=== PATIENT | female | born 1985 | race Caucasian/White ===

== ENCOUNTER 2017-01-13 19:34 | Inpatient (IN) | payer OTHER ==
[2017-01-13 21:56] LABS: HEMOGLOBIN 10.4 g/dL (11.0-16.0); MEAN CELL VOLUME 82.5 fL (81.0-99.0); MEAN CORPUSCULAR HEMOGLOBIN 26.1 pg (27.0-31.0); MEAN CORPUSCULAR HGB CONC 31.6 g/dL (33.0-37.0); MEAN PLATELET VOLUME 10.4 fL (7.2-11.7); RBC 3.98 Mil/uL (3.80-5.20); RED CELL DISTRIBUTION WIDTH 17.5 % (11.5-14.5); WHITE BLOOD COUNT 13.3 K/uL (4.8-10.8)
[2017-01-13 22:01] LABS: ALBUMIN 4.1 g/dL (3.5-5.0)
[2017-01-13 22:02] LABS: HCG,QUALITATIVE URINE NEGATIVE (NEGATIVE)
[2017-01-13 22:04] LABS: AST/SGOT 33 U/L (14-36); GFR AFRICAN-AMERICAN > 60; GFR NON-AFRICAN AMERICAN > 60
[2017-01-13 22:05] LABS: ALB/GLOB RATIO 0.7 (1.0-2.1); ALT/SGPT 23 U/L (9-52); BLOOD UREA NITROGEN 9 mg/dL (7-17); CALCIUM 9.5 mg/dl (8.6-10.4); LIPASE 107 U/L (23-300)
[2017-01-13 22:10] LABS: INR 1.4; PROTHROMBIN TIME 15.3 SECONDS (9.7-12.2)
[2017-01-13 22:21] LABS: SQUAMOUS EPITHIAL 3 /hpf (0-5); URINE BACTERIA FEW (<OCC); URINE BILIRUBIN 1+ (NEGATIVE); URINE BLOOD 1+ (NEGATIVE); URINE CALCIUM OXALATE CRYSTALS MOD /hpf (<OCC); URINE CLARITY Hazy (Clear); URINE COLOR Amber (YELLOW); URINE GLUCOSE (UA) NORMAL (Normal); URINE LEUKOCYTE ESTERASE TRACE Leu/uL (Negative); URINE NITRATE NEGATIVE (NEGATIVE); URINE PROTEIN 1+ mg/dL (NEGATIVE); URINE UROBILINOGEN NORMAL mg/dL (0.2-1.0)
[2017-01-14 01:58] VITALS: BMI 16.2
--- NOTE | 2017-01-14 01:58 | CP.PCM.HP ---
History of Present Illness - History of Present Illness History of Present Illness: General surgery H & P for Dr. Torri Khan, PGY-1 Pt S & E at bedside. 31F w/no sig PMH admitted to surgical service for N/V x 2 days 2/2 high grade bowel obstruction. Pt reports abdominal cramping and emesis (nb, bilious, food and juices) 3-4x per day x past 2 days. Cramping described as twisting, pt reports feeling a hard mass in left side of abdomen when cramping occurs, no inciting, alleviating or aggravating factors identified. Pt went to PMD, given Dicycloamine, took 2 doses, 2nd dose resulted in emesis this AM- pt declined to take more doses. Admits to decreased appetite, recent wt loss over last 2-3 mos, cough/cold 2-3 mos ago, last BM on AM of admission, small volume, reports some small amounts of diarrhea over past 2 days. Denies changes in diet, F/C, SOB, CP, MEYERS, vision changes, hematuria, hematochezia, hematemesis, melena. PMH: Denies PSH: Denies All: Denies SH: Denies ETOH, tobacco, illicit drug use FH: Mother had TB, was being treated for it during time that patient lived with her; recently moved to [place] from [place] (10 mos ago) PMD: Jelani Sainz LMP: 01/10/17- irregular Present on Admission - Present on Admission Any Indicators Present on Admission: No History of DVT/PE: No History of Uncontrolled Diabetes: No Urinary Catheter: No Decubitus Ulcer Present: No Review of Systems - Review of Systems All systems: reviewed and no additional remarkable complaints except - Constitutional Constitutional: Night Sweats (recent history of), Weight Loss (recent history of ). absent: Chills, Fever - EENT Eyes: absent: Change in Vision Nose/Mouth/Throat: absent: Nasal Congestion, Sore Throat - Cardiovascular Cardiovascular: absent: Chest Pain, Palpitations - Respiratory Respiratory: absent: Cough - Gastrointestinal Gastrointestinal: Abdominal Pain, Change in Bowel Habits, Cramping, Vomiting. absent: Nausea - Genitourinary Genitourinary: absent: Change in Urinary Stream - Musculoskeletal Musculoskeletal: absent: Back Pain Meds Allergies/Adverse Reactions: Allergies Allergy/AdvReac Type Severity Reaction Status Date / Time No Known Allergies Allergy Unverified 01/14/17 01:56 Physical Exam - Constitutional Appears: Non-toxic, No Acute Distress - Head Exam Head Exam: ATRAUMATIC, NORMAL INSPECTION, NORMOCEPHALIC - Eye Exam Eye Exam: EOMI, Normal appearance - ENT Exam ENT Exam: Mucous Membranes Moist, Normal Exam - Neck Exam Neck exam: Positive for: Full Rom, Normal Inspection - Respiratory Exam Respiratory Exam: Clear to Auscultation Bilateral, NORMAL BREATHING PATTERN. absent: Rales, Rhonchi, Wheezes, Respiratory Distress - Cardiovascular Exam Cardiovascular Exam: REGULAR RHYTHM, +S1, +S2 - GI/Abdominal Exam GI & Abdominal Exam: Firm, Hypoactive Bowel Sounds, Tenderness (LLQ, suprapubic) . absent: Distended, Guarding, Hernia, Mass, Rebound, Rigid - Back Exam Back exam: FULL ROM, NORMAL INSPECTION - Neurological Exam Neurological exam: Alert, CN II-XII Intact, Oriented x3 - Psychiatric Exam Psychiatric exam: Normal Affect, Normal Mood - Skin Skin Exam: Dry, Intact, Normal Color, Warm Results - Labs Result Diagrams: 01/13/17 21:49 01/13/17 21:49 Labs: Laboratory Results - last 24 hr 01/13/17 01/13/17 01/13/17 21:49 21:49 21:49 WBC 13.3 H RBC 3.98 Hgb 10.4 L Hct 32.8 L MCV 82.5 MCH 26.1 L MCHC 31.6 L RDW 17.5 H Plt Count 287 MPV 10.4 PT 15.3 H INR 1.4 APTT 30 Sodium 132 Potassium 3.9 Chloride 91 L Carbon Dioxide 21 L Anion Gap 24 H BUN 9 Creatinine 0.5 L Est GFR ( Amer) > 60 Est GFR (Non-Af Amer) > 60 Random Glucose 105 Calcium 9.5 Total Bilirubin 0.9 AST 33 ALT 23 Alkaline Phosphatase 103 Total Protein 9.8 H Albumin 4.1 Globulin 5.7 H Albumin/Globulin Ratio 0.7 L Lipase 107 Urine Color Urine Clarity Urine pH Ur Specific [place] Urine Protein Urine Glucose (UA) Urine Ketones Urine Blood Urine Nitrate Urine Bilirubin Urine Urobilinogen Ur Leukocyte Esterase Urine WBC (Auto) Urine RBC (Auto) Ur Squamous Epith Cells Calcium Oxalate Crystal Urine Bacteria Hyaline Casts Urine HCG, Qual Blood Type Antibody Screen 01/13/17 01/13/17 21:49 22:01 WBC RBC Hgb Hct MCV MCH MCHC RDW Plt Count MPV PT INR APTT Sodium Potassium Chloride Carbon Dioxide Anion Gap BUN Creatinine Est GFR ( Amer) Est GFR (Non-Af Amer) Random Glucose Calcium Total Bilirubin AST ALT Alkaline Phosphatase Total Protein Albumin Globulin Albumin/Globulin Ratio Lipase Urine Color [place] Urine Clarity Hazy Urine pH 5.0 Ur Specific [place] 1.030 Urine Protein 1+ H Urine Glucose (UA) Normal Urine Ketones 2+ H Urine Blood 1+ H Urine Nitrate Negative Urine Bilirubin 1+ H Urine Urobilinogen Normal Ur Leukocyte Esterase Trace Urine WBC (Auto) 10 H Urine RBC (Auto) 8 H Ur Squamous Epith Cells 3 Calcium Oxalate Crystal Mod H Urine Bacteria Few H Hyaline Casts 3-5 H Urine HCG, Qual Negative Blood Type B POSITIVE Antibody Screen Negative Assessment & Plan - Assessment and Plan (Free Text) Plan: SBO Admit to surgical service NGT NPO IVF Pain regimen CT ab w/o PO or IV cont with airfluid levels, distended bowel loops FU Obstructive series in AM GI/DVT ppx SCDs Pepcid Ambulate Dispo VS Q8H Activity as tommie/OOBTC/ambulate DW attending Erin PGY-1 - Date & Time Date: 01/14/17 Time: 01:58 Decision To Admit - . Bed Request Type: Regular Admitting Physician: Clay Elizalde
[2017-01-14] MEDS: Sodium Chloride 0.9% 1,000 ML IV SCH ×4 (02:00→22:24)
--- NOTE | 2017-01-14 09:34 | CT ---
PROCEDURE: CT Abdomen and Pelvis without intravenous contrast HISTORY: R/O KIDNEY STONE LEFT SIDE COMPARISON: None. TECHNIQUE: CT scan of the abdomen and pelvis was performed without administration of intravenous contrast. Oral contrast was not administered. Coronal and sagittal reformatted images were obtained. Radiation dose: Total exam DLP = 198.42 mGy-cm. This CT exam was performed using one or more of the following dose reduction techniques: Automated exposure control, adjustment of the mA and/or kV according to patient size, and/or use of iterative reconstruction technique. FINDINGS: LOWER THORAX: The lung bases are clear. LIVER: The liver is normal in size. No gross lesion or ductal dilatation. GALLBLADDER AND BILE DUCTS: No calcified gallstones. PANCREAS: The pancreas is normal in size. No gross lesion or ductal dilatation. SPLEEN: The spleen is normal in size and appearance. ADRENALS: Unremarkable. No mass. KIDNEYS AND URETERS: Normal in size without nephrolithiasis. No hydronephrosis. No solid mass. VASCULATURE: No aortic aneurysm. BOWEL: There is moderate dilatation of small bowel loops with air-fluid levels and fecalization of contents in the distal small bowel. The terminal ileum is normal in caliber. The ileocecal junction is normal. The colon is unremarkable. APPENDIX: Normal appendix. PERITONEUM: There is mild perihepatic ascites and small amount of free fluid in the pelvis. No free air. LYMPH NODES: No enlarged lymph nodes. BLADDER: The urinary bladder is partially decompressed. REPRODUCTIVE: The uterus is normal in size. BONES: No acute fracture. Within normal limits for the patient's age OTHER FINDINGS: None. IMPRESSION: Findings are consistent with high grade acute small bowel obstruction with a transition zone likely in the distal ileum. No evidence of nephrolithiasis or obstructive uropathy. A preliminary report was provided by [employer].
--- NOTE | 2017-01-14 11:36 | RAD ---
PROCEDURE: Radiographs of the chest and abdomen (obstructive series) HISTORY: possible SBO COMPARISON: CT abdomen and pelvis from 01/13/2017 TECHNIQUE: AP radiograph of the chest, with upright and supine radiographs of the abdomen. FINDINGS: CHEST: Lungs: Clear. Cardiovascular: Normal size heart. No pulmonary vascular congestion. Pleura: No pleural fluid. No pneumothorax. Other findings: None. ABDOMEN AND PELVIS: Bowel: There is redemonstration of gaseous distention of the proximal small bowel loops. The distal small bowel loops are decompressed. Free air: None. Bones: Unremarkable. Other findings: None. IMPRESSION: Persistent gaseous distention of proximal small bowel loops consistent with known acute small bowel obstruction. Clear lungs.
[2017-01-15 00:34] VITALS: RESP 20
[2017-01-15] MEDS: Sodium Chloride 0.9% 1,000 ML IV SCH (05:36)
[2017-01-15 07:17] LABS: BASO % 0.2 % (0.0-2.0); EOS % 0.3 % (0.0-4.0); HEMOGLOBIN 9.4 g/dL (11.0-16.0); LYMPH # 1.9 K/uL (1.0-4.3); LYMPH % 13.5 % (20.0-40.0); MEAN CELL VOLUME 84.4 fL (81.0-99.0); MEAN CORPUSCULAR HEMOGLOBIN 25.9 pg (27.0-31.0); MEAN CORPUSCULAR HGB CONC 30.7 g/dL (33.0-37.0); MEAN PLATELET VOLUME 10.8 fL (7.2-11.7); MONO # 1.1 K/uL (0.0-0.8); NEUT # 10.9 K/uL (1.8-7.0); NRBC % 0.1 % (0.0-2.0); RBC 3.64 Mil/uL (3.80-5.20); WHITE BLOOD COUNT 13.9 K/uL (4.8-10.8)
[2017-01-15 07:32] LABS: GFR AFRICAN-AMERICAN > 60; GFR NON-AFRICAN AMERICAN > 60
[2017-01-15 07:33] LABS: BLOOD UREA NITROGEN 5 mg/dL (7-17); CALCIUM 7.9 mg/dl (8.6-10.4)
--- NOTE | 2017-01-15 07:50 | CP.PCM.PN ---
Subjective - Date & Time of Evaluation Date of Evaluation: 01/15/17 Time of Evaluation: 07:00 - Subjective Subjective: Patient seen and examined at bedside this AM. Patient had a fever of 103 overnight that has since resolved. Patient denies further nausea and vomiting, and reports a small solid, non-bloody bowel movement overnight. An NGT insertion was attempted yesterday but patient couldn't tolerate the procedure and refused further attempts. Objective - Vital Signs/Intake and Output Vital Signs (last 24 hours): Temp Pulse Resp BP Pulse Ox 97.9 F 87 20 79/40 L 97 01/14/17 23:07 01/14/17 23:07 01/14/17 23:07 01/14/17 23:07 01/14/17 23:07 Intake and Output: 01/15/17 01/15/17 06:59 18:59 Intake Total 860 Balance 860 - Medications Medications: Current Medications Acetaminophen (Tylenol 325mg Tab) 650 mg PO Q6 PRN PRN Reason: Pain, Mild (1-3) Last Admin: 01/14/17 22:21 Dose: 650 mg Famotidine (Pepcid) 20 mg IVP DAILY DYLAN Sodium Chloride (Sodium Chloride 0.9%) 1,000 mls @ 150 mls/hr IV .Q6H40M DYLAN Last Admin: 01/15/17 05:36 Dose: 150 mls/hr Ketorolac Tromethamine (Toradol) 30 mg IV Q6 PRN PRN Reason: Pain, moderate (4-7) Last Admin: 01/14/17 21:27 Dose: 30 mg Ondansetron HCl (Zofran Inj) 4 mg IVP Q6 PRN PRN Reason: Nausea/Vomiting - Labs Labs: 01/15/17 07:01 01/15/17 07:01 PT 15.3 SECONDS (9.7-12.2) H 01/13/17 21:49 INR 1.4 01/13/17 21:49 APTT 30 SECONDS (21-34) 01/13/17 21:49 - Constitutional Appears: Well, Non-toxic, No Acute Distress - Head Exam Head Exam: ATRAUMATIC, NORMOCEPHALIC - Eye Exam Eye Exam: Normal appearance. absent: Conjunctival injection, Scleral icterus - ENT Exam ENT Exam: Mucous Membranes Moist - Respiratory Exam Respiratory Exam: NORMAL BREATHING PATTERN. absent: Accessory Muscle Use, Wheezes - Cardiovascular Exam Cardiovascular Exam: RRR - GI/Abdominal Exam GI & Abdominal Exam: Distended (moderately), Soft. absent: Rigid, Tenderness - Extremities Exam Extremities Exam: absent: Calf Tenderness, Pedal Edema, Tenderness - Neurological Exam Neurological Exam: Alert, Awake, Oriented x3 - Psychiatric Exam Psychiatric exam: Normal Affect, Normal Mood - Skin Skin Exam: Dry, Intact, Normal Color, Warm Assessment and Plan - Assessment and Plan (Free Text) Assessment: 31F with SBO Fever 103 over night, currently afebrile Abdominal obstructive series yesterday: Proximal small bowel distention with gas with distal decompression WBC: up to 13.9 from 13.3 yesterday NGT insertion attempt not tolerated yesterday Plan: - NPO - IVF - Pain regimen - GI/DVT ppx - encouraged ambulation Dispo: continue inpatient admission on med/surg VS Q8H Activity as tommie/OOBTC/ambulate Further recs per Dr. Fide Arias, PGY2
[2017-01-15] MEDS ORDERED: metroNIDAZOLE IV 500 mg/100 ml 500 MG/100 ML BAG IVPB SCH (08:00)
[2017-01-15] MEDS: Lactated Ringer's 1,000 ML IV SCH ×2 (08:35→16:49)
[2017-01-15] MEDS ORDERED: Ciprofloxacin 400mg/200ml D5W 400 MG/200 ML BAG IVPB SCH (09:00)
--- NOTE | 2017-01-15 12:16 | CP.PCM.PN ---
Subjective - Date & Time of Evaluation Date of Evaluation: 01/15/17 Time of Evaluation: 12:13 - Subjective Subjective: claims to have had a small amount of bm and flatus. requests liquids po. will oblige but if symptoms of obstruction recurs, will consider laparotomy or laparoscopy Objective - Vital Signs/Intake and Output Vital Signs (last 24 hours): Temp Pulse Resp BP Pulse Ox 98.3 F 93 H 20 93/60 L 100 01/15/17 07:48 01/15/17 07:48 01/15/17 07:48 01/15/17 07:48 01/15/17 07:48 Intake and Output: 01/15/17 01/15/17 06:59 18:59 Intake Total 860 Balance 860 - Medications Medications: Current Medications Acetaminophen (Tylenol 325mg Tab) 650 mg PO Q6 PRN PRN Reason: Pain, Mild (1-3) Last Admin: 01/14/17 22:21 Dose: 650 mg Famotidine (Pepcid) 20 mg IVP DAILY [facility] Last Admin: 01/15/17 11:00 Dose: 20 mg Lactated Ringer's (Lactated Ringer's) 1,000 mls @ 125 mls/hr IV .Q8H [facility] Last Admin: 01/15/17 08:35 Dose: 125 mls/hr Ciprofloxacin (Cipro 400mg/200ml Dsw) 400 mg in 200 mls @ 133 mls/hr IVPB Q12 DYLAN Metronidazole (Flagyl) 500 mg in 100 mls @ 100 mls/hr IVPB Q8H [facility] Last Admin: 01/15/17 10:40 Dose: 100 mls/hr Ketorolac Tromethamine (Toradol) 30 mg IV Q6 PRN PRN Reason: Pain, moderate (4-7) Last Admin: 01/14/17 21:27 Dose: 30 mg Ondansetron HCl (Zofran Inj) 4 mg IVP Q6 PRN PRN Reason: Nausea/Vomiting - Labs Labs: 01/15/17 07:01 01/15/17 07:01 PT 15.3 SECONDS (9.7-12.2) H 01/13/17 21:49 INR 1.4 01/13/17 21:49 APTT 30 SECONDS (21-34) 01/13/17 21:49
--- NOTE | 2017-01-15 14:55 | RAD ---
HISTORY: SBO comparison COMPARISON: 01/14/2017. FINDINGS: BOWEL: There is interval increase in size of gas-filled dilated proximal small bowel loops in the left abdomen. Again noted are differential air-fluid levels. No free intraperitoneal air. BONES: Normal. OTHER FINDINGS: None. IMPRESSION: Interval increase in size of gas-filled dilated small bowel loops in the left abdomen in this known small bowel obstruction. No free intraperitoneal air.
[2017-01-15] MEDS: Piperacill/Tazo 3.375gm in Dex 3.375 GM/50 ML BAG IVPB SCH ×2 (15:28→22:24)
--- NOTE | 2017-01-15 15:36 | CP.PCM.CON ---
History of Present Illness - History of Present Illness History of Present Illness: Patient is a 31yr old female who was admitted with severe abdominal pain, vomiting and nausea for 2 days prior to the admission.She says she had severe abdominal pain which she thought was due to constipation but later it became unbearable Patient is presently NPO and being treated for bowel obstruction.She still complains of pain in left lower quadrant.Patient is here since last May 2016 comes from [place] pt reports feeling a hard mass in left side of abdomen when cramping occurs, no inciting, alleviating or aggravating factors identified. Pt went to PMD, given Dicycloamine, took 2 doses, 2nd dose resulted in emesis this AM- pt declined to take more doses. Admits to decreased appetite, recent wt loss over last 2-3 mos, cough/cold 2-3 mos ago, last BM on AM of admission, small volume, reports some small amounts of diarrhea over past 2 days. Denies changes in diet, F/C, SOB, CP, MEYERS, vision changes, hematuria, hematochezia, hematemesis, melena. PMH: Denies PSH: Denies All: Denies SH: Denies ETOH, tobacco, illicit drug use FH: Mother had TB, was being treated for it during time that patient lived with her; recently moved to [place] from [place] (10 mos ago) PMD: Jelani Sainz LMP: 01/10/17- irregular Review of Systems - Review of Systems All systems: reviewed and no additional remarkable complaints except - Constitutional Constitutional: Weakness - EENT Eyes: absent: As Per HPI, Blind Spots, Blurred Vision, Change in Vision, Decreased Night Vision, Diplopia, Discharge, Dry Eye, Exophthalmos, Floaters, Irritation, Itchy Eyes, Loss of Peripheral Vision, Pain, Photophobia, Requires Corrective Lenses, Sees Flashes, Spots in Vision, Tunnel Vision, Other Visual Disturbances, Loss of Vision, Other Nose/Mouth/Throat: absent: As Per HPI, Epistaxis, Nasal Congestion, Nasal Discharge, Nasal Obstruction, Nasal Trauma, Nose Pain, Post Nasal Drip, Sinus Pain, Sinus Pressure, Bleeding Gums, Change in Voice, Dental Pain, Dry Mouth, Dysphagia, Halitosis, Hoarsness, Lip Swelling, Mouth Lesions, Mouth Pain, Odynophagia, Sore Throat, Throat Swelling, Tongue Swelling, Facial Pain, Neck Pain, Neck Mass, Other - Cardiovascular Cardiovascular: absent: As Per HPI, Acrocyanosis, Chest Pain, Chest Pain at Rest , Chest Pain with Activity, Claudication, Diaphoresis, Dyspnea, Dyspnea on Exertion, Edema, Irregular Heart Rhythm, Pain Radiating to Arm/Neck/Jaw, Leg Edema, Leg Ulcers, Lightheadedness, Orthopnea, Palpitations, Paroxysmal Nocturnal Dyspnea, Pedal Edema, Radiating Pain, Rapid Heart Rate, Slow Heart Rate, Syncope, Other - Respiratory Respiratory: absent: As Per HPI, Cough, Dyspnea, Hemoptysis, Dyspnea on Exertion , Wheezing, Snoring, Stridor, Pain on Inspiration, Chest Congestion, Excessive Mucous Production, Change in Mucous Color, Pain with Coughing, Other - Gastrointestinal Gastrointestinal: Abdominal Pain, Constipation, Cramping, Nausea. absent: As Per HPI, Belching, Bloating, Change in Bowel Habits, Change in Stool Character, Coffee Ground Emesis, Diarrhea, Dyspepsia, Dysphagia, Early Satiety, Excessive Flatus, Fecal Incontinence, Heartburn, Hematemesis, Hematochezia, Loose Stools, Melena, Odynophagia, Temesmus, Vomiting, Other - Genitourinary Genitourinary: absent: As Per HPI, Change in Urinary Stream, Difficulty Urinating, Dysuria, Flank Pain, Hematuria, Pyuria, Nocturia, Urinary Incontinence, Urinary Frequency, Urinary Hesitance, Urinary Urgency, Voiding Freq/Small Amts, Freq UTI, Hx Renal/Bladder Calculi, Hx /Renal Surgery, Bladder Distension, Other - Reproductive: Female Reproductive:Female: absent: As Per HPI, Amenorrhea, Amenorrhea/ Control, Currently Menstual, Cycle <21 Days, Cycle >35 Days, Cycle Variable, Menses 1-7 Days, Menses >/= 8 Days, Menses Variable, Cycle > 4 Weeks Between, No Menses for 6 Months, Heavy Menses, Light Menses, Normal Menses, Spotting Between Cycles , S/P Hysterectomy, Menopausal, Post Menopausal, Premenarche, Abnormal Vaginal Bleeding, Dysmenorrhea, Dyspareunia, Genital Lesions, Genital Pruritis, Pelvic Pain, Prolapse Symptoms, Sexual Dysfunction, Vaginal Discharge, Vaginal Dryness , Vaginal Odor, Vaginal Pruritis, Other Additional comments: irregular periods last in November2016 - Musculoskeletal Musculoskeletal: absent: As Per HPI, Abnormal Gait, Arthralgias, Atrophy, Back Pain, Deformity, Joint Swelling, Limited Range of Motion, Loss of Height, Muscle Cramps, Muscle Weakness, Myalgias, Neck Pain, Numbness, Radiating Pain into Limb, Stiffness, Tingling, Other - Integumentary Integumentary: absent: As Per HPI, Acne, Alopecia, Bleeding Lesions, Change in Hair, Change in Nails, Change in Pigmentation, Changing Lesions, Dry Skin, Erythema, Furuncle, Hirsutism, Lesions, New Lesions, Non-Healing Lesions, Photosensitivity, Pruritus, Rash, Skin Pain, Skin Ulcer, Sores, Striae, Swelling , Unusual Bruising, Wounds, Jaundice, Other - Neurological Neurological: absent: As Per HPI, Abnormal Gait, Abnormal Hearing, Abnormal Movements, Abnormal Speech, Behavioral Changes, Burning Sensations, Confusion, Convulsions, Disequilibrium, Dizziness, Numbness, Focal Weakness, Frequent Falls , Headaches, Lack of Coordination, Loss of Vision, Memory Loss, Paresthesias, Radicular Pain, Restless Legs, Sensory Deficit, Syncope, Tingling, Tremor, Vertigo, Weakness, Other Visual Disturbances, Other - Psychiatric Psychiatric: absent: As Per HPI, Abnormal Sleep Pattern, Anhedonia, Anxiety, Auditory Hallucinations, Behavioral Changes, Change in Appetite, Change in Libido, Confusion, Depression, Difficulty Concentrating, Hallucinations, Homicidal Ideation, Hopelessness, Irritability, Memory Loss, Mood Swings, Panic Attacks, Paranoia, Suicidal Ideation, Visual Hallucinations, Tactile Hallucinations, Other - Endocrine Endocrine: absent: As Per HPI, Change in Body Appearance, Change in Libido, Cold Intolorance, Deepening of Voice, Excessive Sweating, Fatigue, Flushing, Heat Intolorance, Increase in Ring/Shoe/Hat Size, Palpitations, Polydipsia, Polyphagia, Polyuria, Other Past Patient History - Past Medical History & Family History Past Medical History?: No - Past Social History Smoking Status: Never Smoked - MUSCULOSKELETAL/RHEUMATOLOGICAL Hx Falls: No - PSYCHIATRIC Hx Substance Use: No - SURGICAL HISTORY Hx Surgeries: No - ANESTHESIA Hx Anesthesia: No Meds Allergies/Adverse Reactions: Allergies Allergy/AdvReac Type Severity Reaction Status Date / Time No Known Allergies Allergy Unverified 01/14/17 01:56 - Medications Medications: Current Medications Acetaminophen (Tylenol 325mg Tab) 650 mg PO Q6 PRN PRN Reason: Pain, Mild (1-3) Last Admin: 01/14/17 22:21 Dose: 650 mg Enoxaparin Sodium (Lovenox) 30 mg SC DAILY [facility] Famotidine (Pepcid) 20 mg IVP DAILY [facility] Last Admin: 01/15/17 11:00 Dose: 20 mg Lactated Ringer's (Lactated Ringer's) 1,000 mls @ 125 mls/hr IV .Q8H [facility] Last Admin: 01/15/17 08:35 Dose: 125 mls/hr Piperacillin Sod/Tazobactam Sod (Zosyn 3.375 Gm Iv Premix) 3.375 gm in 50 mls @ 100 mls/hr IVPB Q8H [facility] Last Admin: 01/15/17 15:28 Dose: 100 mls/hr Ketorolac Tromethamine (Toradol) 30 mg IV Q6 PRN PRN Reason: Pain, moderate (4-7) Last Admin: 01/14/17 21:27 Dose: 30 mg Ondansetron HCl (Zofran Inj) 4 mg IVP Q6 PRN PRN Reason: Nausea/Vomiting Physical Exam - Constitutional Appears: No Acute Distress Additional comments: lert oriented times 3 - Head Exam Head Exam: ATRAUMATIC, NORMOCEPHALIC - Eye Exam Eye Exam: Normal appearance Pupil Exam: NORMAL ACCOMODATION, PERRL - Neck Exam Neck exam: Positive for: Normal Inspection. Negative for: Full Rom, Lymphadenopathy, Meningismus, Tenderness, Thyromegaly - Respiratory Exam Respiratory Exam: Clear to Auscultation Bilateral, NORMAL BREATHING PATTERN. absent: Accessory Muscle Use, Chest Wall Tenderness, Decreased Breath Sounds, Prolonged Expiratory Phase, Rales, Rhonchi, Wheezes, Respiratory Distress, Stridor - Cardiovascular Exam Cardiovascular Exam: REGULAR RHYTHM. absent: Bradycardia, Tachycardia, Clicks, Diastolic murmur, Gallop, Irregular Rhythm, JVD, RRR, Rubs, +S1, +S2, +S4, Systolic Murmur - GI/Abdominal Exam GI & Abdominal Exam: Hypoactive Bowel Sounds, Soft. absent: Bruit, Diminished Bowel Sounds, Distended, Firm, Guarding, Hernia, Hyperactive Bowel Sounds, Mass , Normal Bowel Sounds, Organomegaly, Pulsatile Mass, Rebound, Rigid, Tenderness - Extremities Exam Extremities exam: Positive for: normal inspection. Negative for: calf tenderness, full ROM, joint swelling, normal capillary refill, pedal edema, tenderness, pedal pulses present - Back Exam Back exam: NORMAL INSPECTION - Psychiatric Exam Psychiatric exam: Normal Affect, Normal Mood - Skin Skin Exam: Dry, Normal Color Results - Vital Signs Recent Vital Signs: Last Vital Signs Temp 98.3 F 01/15/17 07:48 Pulse 93 H 01/15/17 07:48 Resp 20 01/15/17 07:48 BP 93/60 L 01/15/17 07:48 Pulse Ox 100 01/15/17 07:48 - Labs Result Diagrams: 01/15/17 07:01 01/15/17 07:01 Labs: Laboratory Results - last 24 hr 01/15/17 01/15/17 07:01 07:01 WBC 13.9 H RBC 3.64 L Hgb 9.4 L Hct 30.7 L MCV 84.4 MCH 25.9 L MCHC 30.7 L RDW 18.0 H Plt Count 228 MPV 10.8 Neut % (Auto) 78.0 H Lymph % (Auto) 13.[address] [place] % (Auto) 8.0 Eos % (Auto) 0.3 Baso % (Auto) 0.2 Neut # 10.9 H Lymph # 1.9 [place] # 1.1 H Eos # 0.0 Baso # 0.0 Sodium 140 Potassium 3.8 Chloride 107 Carbon Dioxide 24 Anion Gap 14 BUN 5 L Creatinine 0.4 L Est GFR ( Amer) > 60 Est GFR (Non-Af Amer) > 60 Random Glucose 83 Calcium 7.9 L - Imaging and Cardiology CT scan - abdomen Status: Image reviewed by me Assessment & Plan (1) Small bowel obstruction Assessment and Plan: Patient admitted with fever and high grade obstruction no previous history of any abdominal surgery and wbc count elevated r/o etiology infectious versus inflammatory added zosyn and need stool studies and blood and urine cultures,will need GI eval and is being followed By Dr Fide crenshaw will follow Status: Acute (2) Anemia Assessment and Plan: check iron studies Status: Acute
[2017-01-16] MEDS: Lactated Ringer's 1,000 ML IV SCH ×4 (00:15→08:37)
[2017-01-16] MEDS: Piperacill/Tazo 3.375gm in Dex 3.375 GM/50 ML BAG IVPB SCH ×3 (05:25→21:34)
[2017-01-16 09:38] LABS: IRON 33 ug/dL (37-170)
[2017-01-16 09:47] LABS: % IRON SATURATION 13 (20-55); TOTAL IRON BINDING CAPACITY 244 ug/dL (250-450)
[2017-01-16] MEDS: Enoxaparin 30 mg Syringe SC SCH (10:50)
--- NOTE | 2017-01-16 10:56 | RAD ---
HISTORY: SBO comparison COMPARISON: Comparison made with prior abdominal radiographs 01/15/2017 PET-CT scan of the abdomen and pelvis 01/13/2022 re- tear FINDINGS: BOWEL: There is relative paucity of bowel gas compared prior study. No gross free intraperitoneal air seen under the diaphragmatic surfaces. BONES: Normal. OTHER FINDINGS: None. IMPRESSION: Paucity of bowel gas compared the prior exam. No evidence of free air.
[2017-01-16 11:49] LABS: BASO % 0.2 % (0.0-2.0); EOS % 0.4 % (0.0-4.0); HEMOGLOBIN 9.2 g/dL (11.0-16.0); LYMPH % 11.5 % (20.0-40.0); MEAN CORPUSCULAR HEMOGLOBIN 26.5 pg (27.0-31.0); MEAN CORPUSCULAR HGB CONC 31.6 g/dL (33.0-37.0); MONO # 0.6 K/uL (0.0-0.8); MONO % 6.5 % (0.0-10.0); NEUT % 81.4 % (50.0-75.0); NRBC % 0.1 % (0.0-2.0); RBC 3.46 Mil/uL (3.80-5.20); RED CELL DISTRIBUTION WIDTH 18.4 % (11.5-14.5); WHITE BLOOD COUNT 8.6 K/uL (4.8-10.8)
[2017-01-16 12:11] LABS: BLOOD UREA NITROGEN 4 mg/dL (7-17); GFR AFRICAN-AMERICAN > 60; GFR NON-AFRICAN AMERICAN > 60
[2017-01-16 12:12] LABS: CALCIUM 8.5 mg/dl (8.6-10.4)
[2017-01-16 12:20] LABS: % IRON SATURATION 13 (20-55); TOTAL IRON BINDING CAPACITY 237 ug/dL (250-450)
[2017-01-16] MEDS: Potassium Ch 20mEq in D5-1/2NS 1,000 ML IV SCH ×2 (13:16→23:00)
--- NOTE | 2017-01-16 13:33 | CP.PCM.PN ---
Subjective - Date & Time of Evaluation Date of Evaluation: 01/16/17 Time of Evaluation: 13:30 - Subjective Subjective: Surgery: Dr. Elizalde Patient feeling much better today. Denies abdominal pain. States she was OOB ambulating yesterday. She reports 2 bowel movements and regular flatus. She denies f/c/n/v.Tolerating liquids. Objective - Vital Signs/Intake and Output Vital Signs (last 24 hours): Temp Pulse Resp BP Pulse Ox 98.2 F 80 20 92/58 L 97 01/16/17 07:26 01/16/17 07:26 01/16/17 07:26 01/16/17 07:26 01/16/17 07:26 Intake and Output: 01/16/17 01/16/17 06:59 18:59 Intake Total 125 Balance 125 - Medications Medications: Current Medications Acetaminophen (Tylenol 325mg Tab) 650 mg PO Q6 PRN PRN Reason: Pain, Mild (1-3) Last Admin: 01/14/17 22:21 Dose: 650 mg Enoxaparin Sodium (Lovenox) 30 mg SC DAILY COUNTS [facility]CLUDE 234 BEDS AT THE [facility] Last Admin: 01/16/17 10:50 Dose: 30 mg Famotidine (Pepcid) 20 mg IVP DAILY COUNTS INCLUDE 234 BEDS AT THE [facility] Last Admin: 01/16/17 10:50 Dose: 20 mg Piperacillin Sod/Tazobactam Sod (Zosyn 3.375 Gm Iv Premix) 3.375 gm in 50 mls @ 100 mls/hr IVPB Q8H COUNTS INCLUDE 234 BEDS AT THE [facility] Last Admin: 01/16/17 13:08 Dose: 100 mls/hr Potassium Chloride/Dextrose/Sod Cl (Potassium Chl 20 Meq In D5-1/2ns) 1,000 mls @ 100 mls/hr IV .Q10H COUNTS INCLUDE 234 BEDS AT THE [facility] Last Admin: 01/16/17 13:16 Dose: 100 mls/hr Ketorolac Tromethamine (Toradol) 30 mg IV Q6 PRN PRN Reason: Pain, moderate (4-7) Last Admin: 01/14/17 21:27 Dose: 30 mg Ondansetron HCl (Zofran Inj) 4 mg IVP Q6 PRN PRN Reason: Nausea/Vomiting - Labs Labs: 01/16/17 10:45 01/16/17 10:45 PT 15.3 SECONDS (9.7-12.2) H 01/13/17 21:49 INR 1.4 01/13/17 21:49 APTT 30 SECONDS (21-34) 01/13/17 21:49 - Constitutional Appears: Non-toxic, No Acute Distress - Head Exam Head Exam: ATRAUMATIC, NORMOCEPHALIC - Eye Exam Eye Exam: EOMI, Normal appearance - ENT Exam ENT Exam: Mucous Membranes Moist - Respiratory Exam Respiratory Exam: NORMAL BREATHING PATTERN. absent: Respiratory Distress - Cardiovascular Exam Cardiovascular Exam: REGULAR RHYTHM. absent: Tachycardia - GI/Abdominal Exam GI & Abdominal Exam: Soft. absent: Distended, Guarding, Tenderness, Rebound Assessment and Plan - Assessment and Plan (Free Text) Assessment: 31 y/o female w/ SBO vs ileus, 2/2 possible enteritis? Plan: -much better after abx started and ambulating -will advance diet to full liquids for dinner tonight then regular diet in am -WBC normal today -cont abx -prelim stool culture shows lactose ferm. f/u final culture results -appreciate ID recs -encourage ambulation -d/w Dr. Fide Brown PGY3
[2017-01-17] MEDS: Potassium Ch 20mEq in D5-1/2NS 1,000 ML IV SCH ×4 (02:43→19:00)
[2017-01-17] MEDS: Piperacill/Tazo 3.375gm in Dex 3.375 GM/50 ML BAG IVPB SCH ×3 (05:48→22:06)
[2017-01-17 08:30] LABS: BASO % 0.2 % (0.0-2.0); EOS # 0.1 K/uL (0.0-0.7); EOS % 1.5 % (0.0-4.0); HEMOGLOBIN 8.6 g/dL (11.0-16.0); LYMPH # 1.4 K/uL (1.0-4.3); LYMPH % 21.3 % (20.0-40.0); MEAN CELL VOLUME 84.2 fL (81.0-99.0); MEAN CORPUSCULAR HEMOGLOBIN 26.6 pg (27.0-31.0); MEAN CORPUSCULAR HGB CONC 31.6 g/dL (33.0-37.0); MONO # 0.8 K/uL (0.0-0.8); MONO % 11.7 % (0.0-10.0); NEUT # 4.2 K/uL (1.8-7.0); NEUT % 65.3 % (50.0-75.0); NRBC % 0.1 % (0.0-2.0); RBC 3.21 Mil/uL (3.80-5.20); RED CELL DISTRIBUTION WIDTH 18.5 % (11.5-14.5); WHITE BLOOD COUNT 6.5 K/uL (4.8-10.8)
[2017-01-17 09:02] LABS: GFR AFRICAN-AMERICAN > 60; GFR NON-AFRICAN AMERICAN > 60
[2017-01-17 09:03] LABS: CALCIUM 8.3 mg/dl (8.6-10.4)
[2017-01-17 09:04] LABS: BLOOD UREA NITROGEN < 2 mg/dL (7-17)
[2017-01-17] MEDS: Enoxaparin 30 mg Syringe SC SCH (10:41)
--- NOTE | 2017-01-17 13:19 | CP.PCM.PN ---
Subjective - Date & Time of Evaluation Date of Evaluation: 01/17/17 Time of Evaluation: 07:30 - Subjective Subjective: General surgery progress note for Dr. Torri Khan, PGY-1 Pt S & E at bedside this AM. Pt reports ambulation, BMs (normal caliber, size), flatus, tolerating diet. Denies N/V/F/C, SOB, CP, abdominal pain. Objective - Vital Signs/Intake and Output Vital Signs (last 24 hours): Temp Pulse Resp BP Pulse Ox 97.8 F 76 20 91/54 L 99 01/17/17 10:48 01/17/17 10:48 01/17/17 10:48 01/17/17 10:48 01/17/17 10:48 Intake and Output: 01/17/17 01/17/17 06:59 18:59 Intake Total 1000 Balance 1000 - Medications Medications: Current Medications Acetaminophen (Tylenol 325mg Tab) 650 mg PO Q6 PRN PRN Reason: Pain, Mild (1-3) Last Admin: 01/14/17 22:21 Dose: 650 mg Enoxaparin Sodium (Lovenox) 30 mg SC DAILY [facility] Last Admin: 01/17/17 10:41 Dose: 30 mg Famotidine (Pepcid) 20 mg IVP DAILY [facility] Last Admin: 01/17/17 10:41 Dose: 20 mg Piperacillin Sod/Tazobactam Sod (Zosyn 3.375 Gm Iv Premix) 3.375 gm in 50 mls @ 100 mls/hr IVPB Q8H [facility] Last Admin: 01/17/17 05:48 Dose: 100 mls/hr Potassium Chloride/Dextrose/Sod Cl (Potassium Chl 20 Meq In D5-1/2ns) 1,000 mls @ 100 mls/hr IV .Q10H [facility] Last Admin: 01/17/17 02:43 Dose: 100 mls/hr Ketorolac Tromethamine (Toradol) 30 mg IV Q6 PRN PRN Reason: Pain, moderate (4-7) Last Admin: 01/14/17 21:27 Dose: 30 mg Ondansetron HCl (Zofran Inj) 4 mg IVP Q6 PRN PRN Reason: Nausea/Vomiting - Labs Labs: 01/17/17 08:19 01/17/17 08:19 PT 15.3 SECONDS (9.7-12.2) H 01/13/17 21:49 INR 1.4 01/13/17 21:49 APTT 30 SECONDS (21-34) 01/13/17 21:49 - Constitutional Appears: Non-toxic, No Acute Distress - Head Exam Head Exam: ATRAUMATIC, NORMAL INSPECTION, NORMOCEPHALIC - Eye Exam Eye Exam: EOMI, Normal appearance - ENT Exam ENT Exam: Mucous Membranes Moist, Normal Exam - Neck Exam Neck Exam: Full ROM, Normal Inspection - Respiratory Exam Respiratory Exam: Clear to Ausculation Bilateral, Rhonchi, NORMAL BREATHING PATTERN - Cardiovascular Exam Cardiovascular Exam: REGULAR RHYTHM, +S1, +S2 - GI/Abdominal Exam GI & Abdominal Exam: Soft, Normal Bowel Sounds. absent: Distended, Firm, Guarding, Rigid, Tenderness, Mass, Rebound - Back Exam Back Exam: NORMAL INSPECTION - Neurological Exam Neurological Exam: Alert, Awake, CN II-XII Intact, Oriented x3 - Psychiatric Exam Psychiatric exam: Normal Affect, Normal Mood - Skin Skin Exam: Dry, Intact, Normal Color, Warm Assessment and Plan - Assessment and Plan (Free Text) Assessment: 31F w/SBO- resolving, no complaints. Plan: SBO Regular diet Ambulate Stool/ova/parasites neg Stool cx neg for salmonella, shigella, campylobacter FOB neg Urine cx pos- GNR in Urine Blood cx neg x 48H Leukocytosis resolved Afebrile over 24H Cont ABx ID following Will DW attending Erin, PGY-1
--- NOTE | 2017-01-17 14:50 | RAD ---
HISTORY: SBO comparison COMPARISON: 01/16/2017 FINDINGS: BOWEL: No evidence of bowel obstruction. There is mucosal edema involving a loop of small bowel in the central abdomen with widening of the valvulae coniventes. This may reflect a nonspecific enteritis. No other abnormal bowel loops are identified. This is only appreciated on this supine view. There is no free intraperitoneal air. There is no hepatic or splenic enlargement. No masses or abnormal calcifications are identified. BONES: Normal. OTHER FINDINGS: None. IMPRESSION: No bowel obstruction. Mucosal thickening involving a loop of small bowel in the central abdomen, nonspecific.
--- NOTE | 2017-01-17 14:59 | CP.PCM.PN ---
Subjective - Date & Time of Evaluation Date of Evaluation: 01/17/17 Time of Evaluation: 02:25 - Subjective Subjective: Patient is feeling better has been on po food and had bowel movement . Her stool was initially looked like was growing lactose core machine tender. I saw her urine culture is positive,she denies any urinary symptoms Objective - Vital Signs/Intake and Output Vital Signs (last 24 hours): Temp Pulse Resp BP Pulse Ox 97.8 F 76 20 91/54 L 99 01/17/17 10:48 01/17/17 10:48 01/17/17 10:48 01/17/17 10:48 01/17/17 10:48 Intake and Output: 01/17/17 01/17/17 06:59 18:59 Intake Total 1000 Balance 1000 - Medications Medications: Current Medications Acetaminophen (Tylenol 325mg Tab) 650 mg PO Q6 PRN PRN Reason: Pain, Mild (1-3) Last Admin: 01/14/17 22:21 Dose: 650 mg Enoxaparin Sodium (Lovenox) 30 mg SC DAILY [facility] Last Admin: 01/17/17 10:41 Dose: 30 mg Famotidine (Pepcid) 20 mg IVP DAILY [facility] Last Admin: 01/17/17 10:41 Dose: 20 mg Piperacillin Sod/Tazobactam Sod (Zosyn 3.375 Gm Iv Premix) 3.375 gm in 50 mls @ 100 mls/hr IVPB Q8H [facility] Last Admin: 01/17/17 14:36 Dose: 100 mls/hr Potassium Chloride/Dextrose/Sod Cl (Potassium Chl 20 Meq In D5-1/2ns) 1,000 mls @ 100 mls/hr IV .Q10H [facility] Last Admin: 01/17/17 02:43 Dose: 100 mls/hr Ketorolac Tromethamine (Toradol) 30 mg IV Q6 PRN PRN Reason: Pain, moderate (4-7) Last Admin: 01/14/17 21:27 Dose: 30 mg Ondansetron HCl (Zofran Inj) 4 mg IVP Q6 PRN PRN Reason: Nausea/Vomiting - Labs Labs: 01/17/17 08:19 01/17/17 08:19 PT 15.3 SECONDS (9.7-12.2) H 01/13/17 21:49 INR 1.4 01/13/17 21:49 APTT 30 SECONDS (21-34) 01/13/17 21:49 - Constitutional Appears: No Acute Distress - Head Exam Head Exam: NORMAL INSPECTION - Eye Exam Eye Exam: Normal appearance Pupil Exam: NORMAL ACCOMODATION - ENT Exam ENT Exam: Mucous Membranes Moist - Neck Exam Neck Exam: Normal Inspection - Respiratory Exam Respiratory Exam: Clear to Ausculation Bilateral - Cardiovascular Exam Cardiovascular Exam: RRR - GI/Abdominal Exam GI & Abdominal Exam: Soft, Normal Bowel Sounds Assessment and Plan (1) Small bowel obstruction Status: Acute (2) Anemia Status: Acute (3) Urinary tract infection Assessment & Plan: awaiting for urine culture results ,continue zosyn Status: Acute
[2017-01-18] MEDS: Potassium Ch 20mEq in D5-1/2NS 1,000 ML IV SCH (04:13)
[2017-01-18] MEDS: Piperacill/Tazo 3.375gm in Dex 3.375 GM/50 ML BAG IVPB SCH (05:33)
[2017-01-18 07:15] LABS: BASO % 0.3 % (0.0-2.0); EOS # 0.2 K/uL (0.0-0.7); EOS % 2.7 % (0.0-4.0); HEMOGLOBIN 8.5 g/dL (11.0-16.0); LYMPH # 1.5 K/uL (1.0-4.3); LYMPH % 22.9 % (20.0-40.0); MEAN CELL VOLUME 83.6 fL (81.0-99.0); MEAN CORPUSCULAR HEMOGLOBIN 26.8 pg (27.0-31.0); MEAN CORPUSCULAR HGB CONC 32.1 g/dL (33.0-37.0); MONO # 0.8 K/uL (0.0-0.8); MONO % 12.3 % (0.0-10.0); NEUT # 4.1 K/uL (1.8-7.0); NEUT % 61.8 % (50.0-75.0); RBC 3.15 Mil/uL (3.80-5.20); RED CELL DISTRIBUTION WIDTH 18.4 % (11.5-14.5); WHITE BLOOD COUNT 6.6 K/uL (4.8-10.8)
[2017-01-18 07:25] LABS: ALBUMIN 2.8 g/dL (3.5-5.0)
[2017-01-18 07:28] LABS: AST/SGOT 72 U/L (14-36); GFR AFRICAN-AMERICAN > 60; GFR NON-AFRICAN AMERICAN > 60
[2017-01-18 07:29] LABS: ALB/GLOB RATIO 0.7 (1.0-2.1); ALT/SGPT 37 U/L (9-52); CALCIUM 8.6 mg/dl (8.6-10.4)
[2017-01-18 07:33] LABS: BLOOD UREA NITROGEN < 2 mg/dL (7-17)
[2017-01-18 09:04] VITALS: BP 83/51; PULSE 84; TEMP 98.1; O2SAT 100
--- NOTE | 2017-01-18 09:21 | RAD ---
HISTORY: SBO comparison COMPARISON: 01/17/2017 FINDINGS: BOWEL: No interval free air same. A few air-fluid levels in the mid distal small bowel are noted this is much less dilated than that suggested are inferred on the 01/13/2017 CT exam There is gas and minimal stool seen throughout the colon is not distended. BONES: Normal. OTHER FINDINGS: None. IMPRESSION: Consistent with a resolving prior high grade small bowel obstruction. Continued follow-up recommended. No interval free air suggested
[2017-01-18] MEDS: Enoxaparin 30 mg Syringe SC SCH (10:26)
--- NOTE | 2017-01-18 10:52 | CP.PCM.DIS ---
Provider - Provider Date of Admission: 01/14/17 01:50 Attending physician: Clay Elizalde MD Primary care physician: Liam Sainz Consults: Ramsey Time Spent in preparation of Discharge (in minutes): 60 Hospital Course - Lab Results Lab Results: Micro Results 01/15/17 09:15 Blood Blood Culture - Preliminary NO GROWTH AFTER 3 DAYS 01/15/17 09:15 Blood Blood Culture - Preliminary NO GROWTH AFTER 3 DAYS 01/15/17 20:00 Urine Urine Culture - Preliminary Escherichia Coli 01/15/17 20:00 Stool Ova and Parasite Concentrate Exam - Final 01/15/17 20:00 Stool Stool Culture - Final NO SALMONELLA, SHIGELLA OR CAMPYLOBACTER ISOLATED. Most Recent Lab Values WBC 6.6 K/uL (4.8-10.8) 01/18/17 06:49 RBC 3.15 Mil/uL (3.80-5.20) L 01/18/17 06:49 Hgb 8.5 g/dL (11.0-16.0) L 01/18/17 06:49 Hct 26.3 % (34.0-47.0) L 01/18/17 06:49 MCV 83.6 fL (81.0-99.0) 01/18/17 06:49 MCH 26.8 pg (27.0-31.0) L 01/18/17 06:49 MCHC 32.1 g/dL (33.0-37.0) L 01/18/17 06:49 RDW 18.4 % (11.5-14.5) H 01/18/17 06:49 Plt Count 202 K/uL (130-400) 01/18/17 06:49 MPV 11.0 fL (7.2-11.7) 01/18/17 06:49 Neut % (Auto) 61.8 % (50.0-75.0) 01/18/17 06:49 Lymph % (Auto) 22.9 % (20.0-40.0) 01/18/17 06:49 Lander % (Auto) 12.3 % (0.0-10.0) H 01/18/17 06:49 Eos % (Auto) 2.7 % (0.0-4.0) 01/18/17 06:49 Baso % (Auto) 0.3 % (0.0-2.0) 01/18/17 06:49 Neut # 4.1 K/uL (1.8-7.0) 01/18/17 06:49 Lymph # 1.5 K/uL (1.0-4.3) 01/18/17 06:49 Lander # 0.8 K/uL (0.0-0.8) 01/18/17 06:49 Eos # 0.2 K/uL (0.0-0.7) 01/18/17 06:49 Baso # 0.0 K/uL (0.0-0.2) 01/18/17 06:49 ESR 36 mm/hr (0-20) H 01/16/17 10:45 PT 15.3 SECONDS (9.7-12.2) H 01/13/17 21:49 INR 1.4 01/13/17 21:49 APTT 30 SECONDS (21-34) 01/13/17 21:49 Sodium 136 mmol/L (132-148) 01/18/17 06:49 Potassium 3.9 mmol/L (3.6-5.2) 01/18/17 06:49 Chloride 103 mmol/L (98-107) 01/18/17 06:49 Carbon Dioxide 27 mmol/L (22-30) 01/18/17 06:49 Anion Gap 10 (10-20) 01/18/17 06:49 BUN < 2 mg/dL (7-17) L 01/18/17 06:49 Creatinine 0.5 MG/DL (0.7-1.2) L 01/18/17 06:49 Est GFR ( Amer) > 60 01/18/17 06:49 Est GFR (Non-Af Amer) > 60 01/18/17 06:49 POC Glucose (mg/dL) 74 mg/dL (65-110) 01/15/17 17:36 Random Glucose 97 mg/dL (65-105) 01/18/17 06:49 Calcium 8.6 mg/dl (8.6-10.4) 01/18/17 06:49 Iron 33 ug/dL (37-170) L 01/16/17 09:08 TIBC 237 ug/dL (250-450) L 01/16/17 10:45 % Saturation 13 (20-55) L 01/16/17 10:45 Total Bilirubin 0.5 mg/dL (0.2-1.3) 01/18/17 06:49 AST 72 U/L (14-36) H D 01/18/17 06:49 ALT 37 U/L (9-52) 01/18/17 06:49 Alkaline Phosphatase 66 U/L (38-126) 01/18/17 06:49 Total Protein 6.7 g/dL (6.3-8.3) 01/18/17 06:49 Albumin 2.8 g/dL (3.5-5.0) L D 01/18/17 06:49 Globulin 3.9 gm/dL (2.2-3.9) 01/18/17 06:49 Albumin/Globulin Ratio 0.7 (1.0-2.1) L 01/18/17 06:49 Lipase 107 U/L (23-300) 01/13/17 21:49 Free T4 1.54 ng/dL (0.78-2.19) 01/16/17 10:45 TSH 3rd Generation 1.30 mIU/L (0.46-4.68) 01/16/17 10:45 Urine Color Arlet (YELLOW) 01/13/17 21:49 Urine Clarity Hazy (Clear) 01/13/17 21:49 Urine pH 5.0 (5.0-8.0) 01/13/17 21:49 Ur Specific [place] 1.030 (1.003-1.030) 01/13/17 21:49 Urine Protein 1+ mg/dL (NEGATIVE) H 01/13/17 21:49 Urine Glucose (UA) Normal mg/dL (Normal) 01/13/17 21:49 Urine Ketones 2+ mg/dL (NEGATIVE) H 01/13/17 21:49 Urine Blood 1+ (NEGATIVE) H 01/13/17 21:49 Urine Nitrate Negative (NEGATIVE) 01/13/17 21:49 Urine Bilirubin 1+ (NEGATIVE) H 01/13/17 21:49 Urine Urobilinogen Normal mg/dL (0.2-1.0) 01/13/17 21:49 Ur Leukocyte Esterase Trace Zena/uL (Negative) 01/13/17 21:49 Urine WBC (Auto) 10 /hpf (0-5) H 01/13/17 21:49 Urine RBC (Auto) 8 /hpf (0-3) H 01/13/17 21:49 Ur Squamous Epith Cells 3 /hpf (0-5) 01/13/17 21:49 Calcium Oxalate Crystal Mod /hpf (<OCC) H 01/13/17 21:49 Urine Bacteria Few (<OCC) H 01/13/17 21:49 Hyaline Casts 3-5 /lpf (0-2) H 01/13/17 21:49 Urine HCG, Qual Negative (NEGATIVE) 01/13/17 21:49 Stool Occult Blood Negative (NEGATIVE) 01/15/17 17:49 Blood Type B POSITIVE 01/13/17 22:01 Antibody Screen Negative 01/13/17 22:01 - Hospital Course Hospital Course: 31F admitted to hospital for SBO on 01/14. Pt placed on bowel rest and fluid resuscitation with resolution of bowel obstruction. While in hospital pt found to have fevers, herrera cultures positive for UTI. Pt placed on antibiotics with improved in symptoms. Patient stable and cleared for d/c home on antibiotics for UTI as per ID and surgery teams. - Date & Time of H&P Date of H&P: 01/14/17 Time of H&P: 01:55 Discharge Exam - Head Exam Head Exam: NORMAL INSPECTION, NORMOCEPHALIC - Eye Exam Eye Exam: EOMI, Normal appearance - ENT Exam ENT Exam: Normal Exam - Neck Exam Neck exam: Full Rom, Normal Inspection - Respiratory Exam Respiratory Exam: Clear to PA & Lateral, NORMAL BREATHING PATTERN, UNREMARKABLE - Cardiovascular Exam Cardiovascular Exam: REGULAR RHYTHM, +S1, +S2 - GI/Abdominal Exam GI & Abdominal Exam: Normal Bowel Sounds, Soft, Unremarkable. absent: Distended , Guarding, Hernia, Hyperactive Bowel Sounds, Tenderness - Extremities Exam Extremities exam: full ROM, tenderness - Neurological Exam Neurological exam: Alert, CN II-XII Intact, Normal Gait, Oriented x3 - Psychiatric Exam Psychiatric exam: Normal Affect, Normal Mood - Skin Skin Exam: Dry, Intact, Normal Color, Warm Discharge Plan - Discharge Medications Prescriptions: Ciprofloxacin HCl [Cipro] 500 mg PO BID #10 tablet - Follow Up Plan Condition: GOOD Disposition: HOME/ ROUTINE Instructions: Bowel Obstruction (DC), Urinary Tract Infection in Women (DC), Urinary Tract Infection in Men (DC), Dysuria (GEN) Additional Instructions: Follow up with Dr. Elizalde in his office in 2 weeks Take all prescriptions as instructed at discharge Return to the ER for any worsened symptoms, vomiting, fevers greater than 100.4 , or any other concerning symptoms Stay hydrated and active Referrals: Clay Elizalde MD [Staff Provider] -
== END 2017-01-18 01:45 | disposition home or self-care (01) | DRG 389 ==
LOC: C.ER 19:34 → C.9E 01-14 01:50 → C.5T 01-14 02:44 → C.3T 01-16 06:33
PROVIDERS: ADMIT Surgery; ATTEND Surgery
DX: K56.60 Unspecified intestinal obstruction (principal); N39.0 Urinary tract infection, site not specified; D64.9 Anemia, unspecified